=== PATIENT | female | born 1980 | race American Indian/Alaskan Native ===

== ENCOUNTER 2019-02-01 09:39 | Emergency (ER) | payer SELFPAY ==
[2019-02-01] MEDS ORDERED: NACL 0.9% 1000 ML 1,000 ML IV ONE (10:03)
[2019-02-01] MEDS ORDERED: ZOFRAN IV ONE (10:03)
--- NOTE | 2019-02-01 10:03 | Emergency Department Report ---
ED N/V/D HPI - General Chief complaint: Nausea/Vomiting/Diarrhea Stated complaint: NAUSEA/VOMITING X 3DAYS Time Seen by Provider: 02/01/19 10:01 Source: patient, family, EMS Mode of arrival: Stretcher Limitations: No Limitations - History of Present Illness Initial comments: Patient is a 38-year-old female that presents emergency room with complaints of nausea vomiting. Patient states she hasn't held anything down for days. Patient is unable to tolerate liquids or solids. Patient states she's had sick contacts with similar symptoms. Patient has a right lower quadrant colostomy tube to colon surgery. Patient denies blood in her vomit and blood in the stool. Patient denies abdominal pain. Patient denies fever or chills. MD complaint: nausea, vomiting -: Sudden Description of Vomiting: watery Associated Abdominal Pain: No Radiation: none Severity: moderate, severe Consistency: constant Improves with: rest Worsens with: eating Context: sick contacts Associated Symptoms: nausea/vomiting. denies: myalgias, chest pain, cough, diaphoresis, fever/chills, headaches, loss of appetite, malaise, rash, dysuria, shortness of breath, syncope, weakness - Related Data Previous Rx's Medication Instructions Recorded Last Taken Type Ondansetron [Zofran Odt] 4 mg PO Q6HR PRN #20 tab.rapdis 02/01/19 Unknown Rx Allergies Allergy/AdvReac Type Severity Reaction Status Date / Time No Known Allergies Allergy Unverified 02/01/19 09:41 ED Review of Systems ROS: Stated complaint: NAUSEA/VOMITING X 3DAYS Other details as noted in HPI Constitutional: denies: chills, fever Eyes: denies: eye pain, eye discharge, vision change ENT: denies: ear pain, throat pain Respiratory: denies: cough, shortness of breath, wheezing Cardiovascular: denies: chest pain, palpitations Endocrine: no symptoms reported Gastrointestinal: nausea, vomiting. denies: abdominal pain, diarrhea Genitourinary: denies: urgency, dysuria, discharge Musculoskeletal: denies: back pain, joint swelling, arthralgia Skin: denies: rash, lesions Neurological: denies: headache, weakness, paresthesias Psychiatric: denies: anxiety, depression Hematological/Lymphatic: denies: easy bleeding, easy bruising ED Past Medical Hx - Past Medical History Previous Medical History?: Yes Additional medical history: anemia. fallopian cyst - Surgical History Past Surgical History?: Yes Additional Surgical History: colostomy - Family History Family history: no significant - Social History Smoking Status: Former Smoker Substance Use Type: None - Medications Home Medications: Home Medications Medication Instructions Recorded Confirmed Last Taken Type Ondansetron [Zofran Odt] 4 mg PO Q6HR PRN #20 tab.rapdis 02/01/19 Unknown Rx ED Physical Exam - General Limitations: No Limitations General appearance: alert, in no apparent distress - Head Head exam: Present: atraumatic, normocephalic - Eye Eye exam: Present: normal appearance, PERRL Pupils: Present: normal accommodation - ENT ENT exam: Present: mucous membranes moist - Neck Neck exam: Present: normal inspection - Respiratory Respiratory exam: Present: normal lung sounds bilaterally. Absent: respiratory distress, wheezes, rales, rhonchi - Cardiovascular Cardiovascular Exam: Present: regular rate, normal rhythm. Absent: systolic murmur, diastolic murmur, rubs, gallop - GI/Abdominal GI/Abdominal exam: Present: soft, normal bowel sounds, other (right lower quadrant ostomy bag noted with loose stool in it. Stoma pink). Absent: distended, tenderness, guarding, rebound - Rectal Rectal exam: Present: deferred - Extremities Exam Extremities exam: Present: normal inspection - Back Exam Back exam: Present: normal inspection - Neurological Exam Neurological exam: Present: alert, oriented X3 - Psychiatric Psychiatric exam: Present: normal affect, normal mood - Skin Skin exam: Present: warm, dry, intact, normal color. Absent: rash ED Course Vital Signs 02/01/19 02/01/19 02/01/19 09:46 09:52 10:00 Temperature 98.5 F Pulse Rate 62 58 L Respiratory 18 17 Rate Blood Pressure 121/79 114/70 O2 Sat by Pulse 96 100 99 Oximetry 02/01/19 02/01/19 02/01/19 10:31 11:00 11:31 Temperature Pulse Rate 57 L 58 L 58 L Respiratory 13 17 13 Rate Blood Pressure 114/70 115/79 114/70 O2 Sat by Pulse 100 100 100 Oximetry 02/01/19 12:01 Temperature Pulse Rate 59 L Respiratory 14 Rate Blood Pressure 114/70 O2 Sat by Pulse Oximetry - Reevaluation(s) Reevaluation #1: Patient resting completely. Patient denies nausea at this time. 02/01/19 10:53 Reevaluation #2: Discussed all results with patient. She'll be given by mouth challenge. 02/01/19 12:00 Reevaluation #3: Discussed all results with patient. Patient stable for discharge. Patient tolerated by mouth intake. Patient will be discharged home. Patient agrees to plan of care. Patient given discharge instructions. Patient voiced understanding of discharge instructions. 02/01/19 12:08 ED Medical Decision Making - Lab Data Result diagrams: 02/01/19 09:57 02/01/19 09:57 - Medical Decision Making Patient is a 38-year-old female that presents emergency room with complaints of nausea vomiting. Patient found to have gastroenteritis. Patient's labs unremarkable. Patient given IV fluids and Zofran. Patient responded well to treatment. Patient tolerated by mouth challenge. Patient was discharged home. - Differential Diagnosis gastritis. Nausea vomiting. Gastroenteritis Critical care attestation.: If time is entered above; I have spent that time in minutes in the direct care of this critically ill patient, excluding procedure time. ED Disposition Clinical Impression: Gastroenteritis, Dehydration Nausea & vomiting Qualifiers: Vomiting type: unspecified Vomiting Intractability: non-intractable Qualified Code(s): R11.2 - Nausea with vomiting, unspecified Disposition: TO HOME OR SELFCARE Is pt being admited?: No Does the pt Need Aspirin: No Condition: Stable Instructions: Gastroenteritis (ED), Acute Nausea and Vomiting (ED) Additional Instructions: Patient to follow-up with primary care in 2-3 days. Patient to take Tylenol or ibuprofen when necessary for pain. Patient to return to ER if condition worsens. Patient to take meds as directed. Patient to increase water. Patient to rest. Patient to continue all meds. Prescriptions: Ondansetron [Zofran Odt] 4 mg PO Q6HR PRN #20 tab.rapdis PRN Reason: Nausea And Vomiting Referrals: EMILIE ROBERTSON MD [Primary Care Provider] - 2-3 Days Time of Disposition: 12:01
[2019-02-01 10:18] LABS: Mean Corpuscular HGB Conc 31 % (30-34); Mean Corpuscular Volume 78 fl (79-97); Platelet Count 320 K/mm3 (140-440); Red Blood Count 4.49 M/mm3 (3.65-5.03)
[2019-02-01 10:30] LABS: Alanine Aminotransferase 14 units/L (7-56); Albumin 4.9 g/dL (3.9-5); BUN/Creatinine Ratio 20; Blood Urea Nitrogen 12 mg/dL (7-17); Hemolysis Index 4
[2019-02-01 12:11] LABS: Anisocytosis 1+; Basophils % (Manual) 0 % (0.0-1.8); Eosinophils % (Manual) 0 % (0.0-4.3); Hypochromasia 1+; Platelet Estimate Consistent w Auto; Total Cells Counted 100
[2019-02-01 12:24] LABS: Bacteria,Urine 1+ /HPF (Negative); Bilirubin,Urine NEG (Negative); Blood,Urine NEG (Negative); Color,Urine Yellow (Yellow); Mucus,Urine 3+ /HPF; RBC,Urine < 1.0 /HPF (0.0-6.0); Urobilinogen,Urine < 2.0 mg/dL (<2.0)
[2019-02-01 13:08] VITALS: BP 131/77
== END 2019-02-01 12:59 | disposition home or self-care (01) ==
LOC: ED 09:39
DX: K52.9 Noninfective gastroenteritis and colitis, unspecified (principal); E86.0 Dehydration; Z86.2 Personal history of diseases of the blood and blood-forming organs and certain disorders involving the immune mechanism
CPT/HCPCS: 36415; 80053; 81001; 84703; 85007; 85025; 96361; 96374; 99284; J2405; J7030